=== PATIENT | female | born 1990 | race Caucasian/White ===

== ENCOUNTER 2017-05-22 04:59 | Inpatient (IN) ==
[2017-05-21 09:37] LABS: HEMATOCRIT 34.3 % (37.0-47.0); HEMOGLOBIN 11.7 g/dL (12.0-16.0); MCH 28.7 PG (27-31); MCHC 34.1 g/dL (33-37); MCV 84.1 FL (81-99); MPV 10.7 FL (7.4-10.4); RBC 4.08 XMIL (4.2-5.4)
[2017-05-22] MEDS ORDERED: KEFZOL 1 GM/D5W 1 GM/50 ML IVPB IV PRN (05:14)
[2017-05-22] MEDS ORDERED: SODIUM CHLORIDE 0.9% INJ ONE (05:16)
[2017-05-22] MEDS ORDERED: PEPCID IV ONE (05:16)
[2017-05-22] MEDS ORDERED: BICITRA PO ONE (05:16)
[2017-05-22 05:45] LABS: URINE SOURCE VOIDED
[2017-05-22 06:02] LABS: BILIRUBIN URINE NEGATIVE (NEGATIVE); BLOOD URINE NEGATIVE (NEGATIVE); CLARITY CLEAR (CLEAR); COLOR YELLOW; GLUCOSE URINE NEGATIVE (NEGATIVE); LEUKOCYTES URINE NEGATIVE (NEGATIVE); NITRITE URINE NEGATIVE (NEGATIVE); PH URINE 6.5; PROTEIN URINE NEGATIVE (NEGATIVE); SP GRAVITY URINE 1.015; UROBILINOGEN URINE NORMAL
[2017-05-22 06:03] LABS: UR AMPHETAMINES QUAL NONE DETECTED (NONE DETECT); UR BARBITUATES QUAL NONE DETECTED (NONE DETECT); UR BENZODIAZEPIN QUAL NONE DETECTED (NONE DETECT); UR CANNABINOIDS QUAL NONE DETECTED (NONE DETECT); UR COCAINE QUAL NONE DETECTED (NONE DETECT); UR MDMA QUAL NONE DETECTED (NONE DETECT); UR METHADONE QUAL NONE DETECTED (NONE DETECT); UR METHAMPHETAMINE QUAL NONE DETECTED (NONE DETECT); UR OPIATES QUAL NONE DETECTED (NONE DETECT); UR OXYCODONE QUAL NONE DETECTED (NONE DETECT); UR PCP QUAL NONE DETECTED (NONE DETECT); UR TCA QUAL NONE DETECTED (NONE DETECT)
[2017-05-22] MEDS: LR 1,000 ML IV SCH ×2 (06:20→07:20)
[2017-05-22 08:08] LABS: URINE SOURCE VOIDED
[2017-05-22 08:15] LABS: UR AMPHETAMINES QUAL NONE DETECTED (NONE DETECT); UR BARBITUATES QUAL NONE DETECTED (NONE DETECT); UR BENZODIAZEPIN QUAL NONE DETECTED (NONE DETECT); UR CANNABINOIDS QUAL NONE DETECTED (NONE DETECT); UR COCAINE QUAL NONE DETECTED (NONE DETECT); UR MDMA QUAL NONE DETECTED (NONE DETECT); UR METHADONE QUAL NONE DETECTED (NONE DETECT); UR METHAMPHETAMINE QUAL NONE DETECTED (NONE DETECT); UR OPIATES QUAL NONE DETECTED (NONE DETECT); UR OXYCODONE QUAL NONE DETECTED (NONE DETECT); UR PCP QUAL NONE DETECTED (NONE DETECT); UR TCA QUAL NONE DETECTED (NONE DETECT)
[2017-05-22 08:20] LABS: BILIRUBIN URINE NEGATIVE (NEGATIVE); BLOOD URINE NEGATIVE (NEGATIVE); CLARITY CLEAR (CLEAR); COLOR YELLOW; GLUCOSE URINE NEGATIVE (NEGATIVE); LEUKOCYTES URINE TRACE (NEGATIVE); NITRITE URINE NEGATIVE (NEGATIVE); PH URINE 6.5; PROTEIN URINE TRACE mg/dL (NEGATIVE); SP GRAVITY URINE 1.015; UROBILINOGEN URINE NORMAL
[2017-05-22] MEDS ORDERED: PITOCIN ONE (09:31)
[2017-05-22] MEDS ORDERED: DURAMORPH ONE (09:32)
[2017-05-22] MEDS ORDERED: ZOFRAN ONE (09:43)
[2017-05-22] MEDS ORDERED: TORADOL ONE (09:43)
[2017-05-22] MEDS ORDERED: CYTOTEC PO PRN (10:35)
[2017-05-22] MEDS ORDERED: HYDROXYZINE PO PRN (10:35)
[2017-05-22] MEDS ORDERED: PERCOCET-10 PO PRN (10:35)
[2017-05-22] MEDS ORDERED: PHENERGAN IM PRN (10:35)
[2017-05-22] MEDS ORDERED: HYDROXYZINE IM PRN (10:35)
[2017-05-22] MEDS ORDERED: AMBIEN PO PRN (10:35)
[2017-05-22] MEDS ORDERED: PITOCIN 20 UNITS/LR 20 UNITS/1,000 ML IV.SOLN IV ONE (10:35)
[2017-05-22] MEDS ORDERED: DEMEROL PO PRN (10:35)
[2017-05-22] MEDS ORDERED: BOOSTRIX VACCINE IM ONE (10:35)
[2017-05-22] MEDS ORDERED: M-M-R II VACCINE SUBQ ONE (10:35)
[2017-05-22] MEDS ORDERED: MYLICON PO PRN (10:35)
[2017-05-22] MEDS ORDERED: PITOCIN IM PRN (10:35)
[2017-05-22] MEDS ORDERED: DULCOLAX PR PRN (10:35)
[2017-05-22] MEDS ORDERED: PITOCIN 10 UNITS/LR 10 UNIT/1,000 ML IV.SOLN IV SCH (10:45)
[2017-05-22] MEDS ORDERED: NARCAN INJ PRN (10:53)
[2017-05-22] MEDS ORDERED: ZOFRAN ODT PO PRN (10:53)
[2017-05-22] MEDS ORDERED: BENADRYL IV PRN (10:53)
[2017-05-22] MEDS ORDERED: ZOFRAN IV PRN ×2 (10:53)
[2017-05-22] MEDS ORDERED: DEMEROL IV PRN (10:54)
[2017-05-22] MEDS ORDERED: MORPHINE IV PRN (10:54)
[2017-05-22] MEDS: MYLICON PO SCH ×3 (13:26→19:35)
[2017-05-22] MEDS: TORADOL IV SCH ×6 (16:22→22:18)
[2017-05-22] MEDS: PERICOLACE PO SCH (20:14)
[2017-05-23] MEDS: TORADOL IV SCH ×2 (05:44→19:41)
[2017-05-23 06:16] LABS: HEMATOCRIT 28.3 % (37.0-47.0); HEMOGLOBIN 9.3 g/dL (12.0-16.0); MCH 28.4 PG (27-31); MCHC 32.9 g/dL (33-37); MCV 86.3 FL (81-99); RBC 3.28 XMIL (4.2-5.4)
[2017-05-23] MEDS: MYLICON PO SCH ×6 (06:16→20:22)
[2017-05-23] MEDS ORDERED: LR 1,000 ML IV SCH (10:35)
[2017-05-23] MEDS: PERCOCET-5 PO PRN (15:16)
[2017-05-23] MEDS: PERICOLACE PO SCH (20:22)
[2017-05-23] MEDS: MOTRIN PO PRN (23:36)
[2017-05-24] MEDS: PERCOCET-5 PO PRN (05:18)
[2017-05-24 07:58] VITALS: BP 146/85
[2017-05-24] MEDS: MYLICON PO SCH (08:46)
[2017-05-24] MEDS: MOTRIN PO PRN (10:03)
== END 2017-05-24 13:08 | disposition home or self-care (01) ==
LOC: P.LD 04:59 → P.WC 12:50
PROVIDERS: ADMIT Obstetrics & Gynecology; ATTEND Obstetrics & Gynecology